=== PATIENT | female | born 1990 | race African-American/Black ===

== ENCOUNTER 2023-08-27 13:50 | Emergency (ER) | payer BC, SELFPAY ==
--- NOTE | 2023-08-27 13:59 | ED.SKABFB ---
HPI - Skin/Abscess/Foreign Bdy General Chief complaint: Urogenital-Female Stated complaint: ABSCESS Time Seen by Provider: 08/27/23 13:52 Source: patient, RN notes reviewed and old records reviewed Mode of arrival: ambulatory Limitations: no limitations History of Present Illness HPI narrative: Patient presents accompanied by her significant other. She does report that she noticed a sore her labia 5 days ago. She reports that she had a similar sore several years ago was diagnosed with genital herpes. She denies any fever, chills, sweats. She denies any unusual vaginal discharge. She denies any abdominal pain. Related Data Home Medications Medication Instructions Recorded Confirmed No Home Medications 08/27/23 08/27/23 Allergies Allergy/AdvReac Type Severity Reaction Status Date / Time No Known Allergies Allergy Verified 08/27/23 13:59 Review of Systems Review of Systems: All systems reviewed & are unremarkable except as noted in HPI and below Constitutional: Constitutional: Reports no additional constitutional complaints ENT: Reports system reviewed and no additional complaints, except as documented Cardiovascular: Cardiovascular: Reports no additional cardiovascular complaints Respiratory: Respiratory: Reports no additional respiratory complaints Gastrointestinal: Gastrointestinal: Reports no additional gastrointestinal complaints Genitourinary: Genitourinary: Reports as per HPI Integumentary/Breasts: Skin/Breast: Reports skin ulcer (labia) PMFSH Comments At the time of my signature, I reviewed and agree with the nursing past medical, surgical, social, and family history. There is no relevant family history pertinent to the patient complaint. Exam Const: General: cooperative, no acute distress, alert and awake Orientation/consciousness: oriented to person, oriented to place and oriented to time HENMT: Head: normal to inspection Resp: Effort & Inspection: normal respiratory effort and able to speak in complete sentences Auscultation: clear to auscultation bilaterally, no crackles, no rales, no rhonchi and no wheezes Cardio: Palpation: normal PMI Rate: regular rate Rhythm: regular rhythm Heart sounds: S1 normal heart sound present and S2 normal heart sound present : Speculum Exam - Cervix: Abnormal cervical discharge present and Other cervical findings present ( Cervix friable and irritated) Bimanual exam- vagina & uterus: normal bimanual exam Female genitals images: 1. lesion c/w herpes Neuro: General: oriented to person, oriented to place and oriented to time Cranial nerves: Yes CN's II-XII intact bilaterally Psych: Appearance: grossly normal Thought process: Normal thought process present Insight: Good insight present (Psych) Judgement: Good judgement present (Psych) Course Course Level of Care: Express Care Visit Vital Signs Vital signs: Vital Signs Temperature 98 F 08/27/23 14:00 Pulse Rate 58 L 08/27/23 14:00 Respiratory Rate 16 08/27/23 14:00 Blood Pressure 147/80 H 08/27/23 14:00 Pulse Oximetry 100 08/27/23 14:00 Temperature 98 F 08/27/23 14:04 Pulse Rate 58 L 08/27/23 14:04 Respiratory Rate 16 08/27/23 14:04 Blood Pressure 147/80 H 08/27/23 14:04 Pulse Oximetry 100 08/27/23 14:04 Reviewed MDM - Skin/Abscess/Foreign Bdy MDM Narrative Medical decision making narrative: patient with history of herpes diagnosis presents with similar symptoms that have been present for about 5 days. Exam is consistent with herpes, unfortunately she is out of treatment window with antiviral. Abnormalities of cervix are noted, swabs were taken. Cultures have been sent. Patient advised no sex until lesion heels and she gets results of her testing. She agrees to do so. She is to follow up with her primary care provider within 1-2 weeks, emergency department for new or worsening symptoms. Discharge instructions reviewed with patient, as
[2023-08-27 14:00] VITALS: BP 147/80; PULSE 58; RESP 16; TEMP 36.6; O2SAT 100
[2023-08-27 14:04] VITALS: BP 147/80; PULSE 58; RESP 16; TEMP 36.6; O2SAT 100
[2023-08-27 20:52] LABS: Trichomonas Vag PCR NOT DETECTED (NOT DETECTE)
[2023-08-27 21:13] LABS: Chlamydia trachomatis NOT DETECTED (NOT DETECTE); Neisseria gonorrhoeae PCR NOT DETECTED (NOT DETECTE)
[2023-09-02 08:24] LABS: Source NOT GIVEN
== END 2023-08-27 14:43 | disposition home or self-care (01) ==
PROVIDERS: Emergency Provider Nurse Practitioner Family; PCP Nurse Practitioner Family
DX: A60.00 Herpesviral infection of urogenital system, unspecified (principal); Z20.2 Contact with and (suspected) exposure to infections with a predominantly sexual mode of transmission
CPT/HCPCS: 87070; 87255; 87491; 87591; 87661; 99214; G0463